=== PATIENT | male | born 1960 | race Caucasian/White ===

== ENCOUNTER → 2019-07-05 11:33 | Outpatient (BNVA) | payer OTHER, SELFPAY | PROVIDERS: Referring Provider Family Medicine; Visit Provider Specialist | DX: M25.511 Pain in right shoulder (principal) | CPT/HCPCS: 73030 ==

== ENCOUNTER 2019-07-14 10:32 | Outpatient (CLI) | payer OTHER, SELFPAY ==
--- NOTE | 2019-07-14 10:39 | MR_ITS ---
WS: [id number] MRI LEFT SHOULDER HISTORY: SHOULDER PAIN COMPARISON: 07/05/2019 TECHNIQUE: Multiplanar sequences of the shoulder joint are submitted. Moderate hypertrophy of the AC joint. Soft tissue and bone hypertrophy with minimal encroachment upon the supraspinatus muscle and tendon. There is a small amount of subacromial and subdeltoid fluid. Ad ditional 5 mm osteophyte along the distal inferior acromion with encroachment upon the supraspinatus tendon over the humeral head. There is a large amount of abnormal signal in the distal 3 to 4 cm of the supraspinatus tendon. There is marked thickening of the tendon but also increased signal. Abnormal signal extends to the articul ar surface. There is loss of signal over the superior humeral head on all sequences. Suspect this is combination of supraspinatus tendinopathy and tears. No definite tear in the subscapularis or infrasp inatus. There is a lobulated fluid collection in the subscapularis recess. No muscle atrophy or edema . Biceps tendon is in normal position. Just distal to the bicipital groove is marked thickening of the biceps tendon. Mild narrowing of the glenohumeral joint. There is an increased signal and fraying of the labrum but no tear. MR/MR shoulder LT wo con* [id number] IMPRESSION: 1. Abnormal signal in the distal supraspinatus tendon. Probably combination of severe tendinopathy and biceps tendon tear involving the articular surface. 2. 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 3. Distal undersurface acromial osteophyte with encroachment upon the supraspi natus tendon over the superior humeral head. 4. Thickening of the biceps tendon consistent with tendinopathy. 5. Glenohumeral joint arthritis.
== END 2019-07-14 10:33 | disposition home or self-care (01) ==
LOC: RADWPI 10:36
PROVIDERS: PCP Family Medicine; Visit Provider Specialist
DX: M19.012 Primary osteoarthritis, left shoulder (principal); M25.712 Osteophyte, left shoulder
CPT/HCPCS: 73221

== ENCOUNTER → 2020-02-23 14:51 | Outpatient (BNVA) | payer OTHER, SELFPAY | PROVIDERS: PCP Family Medicine; Visit Provider Nurse Practitioner Family | DX: Z11.59 Encounter for screening for other viral diseases (principal); Z20.828 Contact with and (suspected) exposure to other viral communicable diseases; J06.9 Acute upper respiratory infection, unspecified | CPT/HCPCS: 87635 ==